=== PATIENT | male | born 1950 | race Asian ===

== ENCOUNTER 2018-01-01 10:48 | Emergency (ER) | payer MEDICARE, OTHER ==
[~2018-01-01] VITALS: Ht 172.7 cm; Wt 72.6 kg
[2018-01-01 10:49] VITALS: BP 129/81
[2018-01-01] MEDS ORDERED: Ketorolac 30mg Inj IM ONE (11:15)
[2018-01-01] MEDS ORDERED: Cyclobenzaprine 10mg Tab ORAL ONE (11:15)
--- NOTE | 2018-01-01 11:20 | Emergency Room Report ---
History of Present Illness General Chief Complaint: Lower Back Pain or Injury Source: Patient Present Illness HPI 67-year-old male was walking outside, and the dog came up to him running, startled and he fell back, hurt his left wrist in his low back, did not hit his head, denies neck pain or upper back pain, denies loss of consciousness, denies use of blood thinners, denies any bleeding. He reports pain is back and left wrist constant achy moderate intensity, he denies any weakness, numbness, tingling. Allergies: Coded Allergies: No Known Allergies (Unverified , 01/01/18) Patient History Past Medical History: see triage record Reviewed Nursing Documentation: PMH: Agreed; PSxH: Agreed Review of Systems All Other Systems: negative except mentioned in HPI Physical Exam Vital Signs Date Time Temp Pulse Resp B/P (MAP) Pulse Ox O2 Delivery O2 Flow Rate FiO2 01/01/18 10:40 98.0 82 16 132/86 98 Room Air 98.1 Sp02 EP Interpretation: reviewed, normal General Appearance: no apparent distress, alert, non-toxic Head: normocephalic Eyes: bilateral eye normal inspection, bilateral eye PERRL, bilateral eye EOMI ENT: normal ENT inspection, hearing grossly normal, normal pharynx, no angioedema, normal voice, moist mucus membranes Neck: normal inspection, full range of motion, supple, supple/symm/no masses Respiratory: chest non-tender, lungs clear, normal breath sounds, chest symmetrical, palpation of chest normal Cardiovascular #1: normal peripheral pulses, regular rate, rhythm, no edema, no gallop, no JVD, no murmur, no rub Cardiovascular #2: 2+ radial (R), 2+ radial (L), 2+ dorsalis pedis (R), 2+ dorsalis pedis (L) Gastrointestinal: normal inspection, non tender, soft, no mass, no guarding, no rebound Rectal: deferred Genitourinary: normal inspection, no CVA tenderness Musculoskeletal: back normal, gait/station normal, normal range of motion, non- tender, no calf tenderness, tender - miild diffuse L spine and L wrist tenderness but FROM and no deformity Neurologic: alert, responsive, 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, motor strength/tone normal, SLR negative - + on RLE, sensory intact, speech normal Psychiatric: judgement/insight normal, memory normal, mood/affect normal Skin: normal color, no rash, warm/dry, normal turgor Lymphatic: no adenopathy Medical Decision Making Diagnostic Impression: Primary Impression: Low back pain Additional Impression: Compression fracture ER Course Patient with mechanical fall, found to have L2 compression fracture, will discharge as he is very stable, instructed to follow-up with PMD in 2-3 days for reevaluation, will give analgesics, do not suspect any spinal cord injury at this time, patient not on blood thinners, pain is under control, will discharge and patient understands importance of f/u for spinal surgery referral by PMD. Other X-Ray Diagnostic Results Other X-Ray Diagnostic Results #1: X-Ray ordered: L wrist # of Views/Limited Vs Complete: Limited Indication: Pain EP Interpretation: Yes Interpretation: no dislocation, no soft tissue swelling, no fractures, nonspecific bowel gas Impression: No acute disease Electronically Signed by: Fanta Sanchez MD Other X-Ray Diagnostic Results #2: X-Ray ordered: L spine # of Views/Limited Vs Complete: Limited Indication: Pain EP Interpretation: Yes Interpretation: no dislocation, no soft tissue swelling, nonspecific bowel gas, no sbo, other Impression: Other Electronically Signed by: L2 compression fx, ~20% loss of height Last Vital Signs Date Time Temp Pulse Resp B/P (MAP) Pulse Ox O2 Delivery O2 Flow Rate FiO2 01/01/18 10:49 98.1 82 16 129/81 98 Room Air 98.1 Disposition: HOME, SELF-CARE Condition: Stable FANTA SANCHEZ M.D Jan 01, 2018 11:20
--- NOTE | 2018-01-01 13:56 | Diagnostic Imaging Report ---
Indication: Back pain Comparison: None Findings: 3 views of the lumbar spine were obtained. There is a mild compression fracture of the anterior aspect of the superior endplate of L2 with mild depression of the superior endplate and a fracture line extending vertically into the L1-2 disc. There is also slight buckling of the anterior cortex along the superior margin of the vertebra. The bones are osteopenic. There is a moderate narrowing of L4-5 disc. There is sclerosis of the lower lumbar facets and hypertrophy. Aorta is moderately calcified. There is no malalignment identified. IMPRESSION: Acute, mild anirudh-superior endplate fracture of the L2 vertebra. Osteoporosis Degenerative spondylosis. Atherosclerotic vascular disease
[2018-01-01] MEDS ORDERED: COLACE100 MG ORAL (13:58)
[2018-01-01] MEDS ORDERED: NORCO 5-325 TA1 EACH ORAL (13:58)
[2018-01-01] MEDS ORDERED: IBUPROFEN600 MG ORAL (13:58)
[2018-01-01 14:39] VITALS: BP 129/81
--- NOTE | 2018-01-01 14:51 | Diagnostic Imaging Report ---
Indication: Left wrist pain Findings: 3 views of the left wrist were obtained. Questionable age indeterminant fracture involving the distal radius on the oblique view. The fracture may be an intra-articular if real or acute. Alignment is anatomic. Soft tissues are unremarkable. Bones are osteopenic. IMPRESSION: Questionable distal radius fracture
[2018-01-01] MEDS ORDERED: UNOBMED (15:38)
== END 2018-01-01 14:39 | disposition home or self-care (01) ==
LOC: EDBD 10:48 → EMR 11:40
DX: S32.029A Unspecified fracture of second lumbar vertebra, initial encounter for closed fracture (principal); S69.92XA Unspecified injury of left wrist, hand and finger(s), initial encounter; W18.39XA Other fall on same level, initial encounter; Y93.89 Activity, other specified; Y92.018 Other place in single-family (private) house as the place of occurrence of the external cause
CPT/HCPCS: 72020; 73110; 96372; 99284; J1885

== ENCOUNTER 2018-01-01 15:23 | Emergency (ER) | payer MEDICARE, OTHER ==
[~2018-01-01] VITALS: Ht 175.3 cm; Wt 77.1 kg
[~2018-01-01 15:23] MED LIST: COLACE100 MG ORAL; IBUPROFEN600 MG ORAL; NORCO 5-325 TA1 EACH ORAL
[2018-01-01 15:26] VITALS: BP 129/84
[2018-01-01] MEDS ORDERED: UNOBMED (15:38)
--- NOTE | 2018-01-01 16:33 | Diagnostic Imaging Report ---
Indication: Injury of the left wrist. Abnormal x-ray. Technique: Continuous helical imaging of the left knee was performed in the transaxial plane. Coronal 2-D reformatted images were also generated. Study obtained in a Siem[employer] Sensation [address] total DLP: 365 mGycm CTD/vol: 0.15, 0.15, 11.52 mGy Comparison: None Findings: Plain x-ray suspicion of a acute fracture is confirmed as there is evidence of an acute nondisplaced intra-articular fracture involving the dorsal aspect of the distal radius. The fracture is seen for example images 44-53 series 10. The fracture intersects both the radioscaphoid joint as well as the distal radial ulnar joint. There is no malalignment. The fracture is nondisplaced. Soft tissue swelling noted. IMPRESSION: Acute nondisplaced intra-articular fracture of the dorsal radial with the main fracture line extending into the radioscaphoid joint. The CT scanner at [facility] is accredited by the [employer] and the scans are performed using dose optimization techniques as appropriate to a performed exam including Automatic Exposure control.
--- NOTE | 2018-01-01 16:38 | Emergency Room Report ---
History of Present Illness General Chief Complaint: General Complaint Source: Patient, Medical Record Present Illness HPI Refer to the addendum that was made on the patient's initial visit Radiology did contact us regarding possible fracture Therefore the patient presented back to the emergency room for further imaging including CT imaging. He does describe discomfort to the distal left wrist This visit specifically is focused on the wrist evaluation itself And further evaluation was not made Allergies: Coded Allergies: No Known Allergies (Unverified , 01/01/18) Patient History Past Medical History: see triage record Pertinent Family History: none Reviewed Nursing Documentation: PMH: Agreed; PSxH: Agreed Nursing Documentation-PMH Past Medical History: No History, Except For Hx Neurological Problems: No - chronic back problem Review of Systems Eye: Reports: no symptoms; Denies: eye pain, blurred vision ENT: Reports: no symptoms; Denies: ear pain, ear discharge Respiratory: Reports: no symptoms; Denies: cough, orthopnea Musculoskeletal: Reports: other - Pain to left wrist Skin: Reports: rash Neurological: Denies: headache, numbness Endocrine: Denies: excessive sweating Physical Exam Vital Signs Date Time Temp Pulse Resp B/P (MAP) Pulse Ox O2 Delivery O2 Flow Rate FiO2 01/01/18 15:25 98.5 88 16 129/84 98 Room Air 98.4 Sp02 EP Interpretation: reviewed, normal General Appearance: well appearing, no apparent distress Head: normocephalic, atraumatic Eyes: bilateral eye PERRL, bilateral eye EOMI ENT: hearing grossly normal, normal pharynx Neck: full range of motion Cardiovascular #1: regular rate, rhythm Gastrointestinal: non tender Musculoskeletal: other - Tender on palpation of the distal radial area on the left arm Neurologic: alert, oriented x3, responsive Skin: normal color Lymphatic: no adenopathy Procedures Splinting Progress Please refer to previous note, the splint on the left wrist is left in place Medical Decision Making Diagnostic Impression: Primary Impression: wrist fracture ER Course Patient did have CAT scan of the wrist obtained which does confirm distal radial fracture This is intra-articular and patient will require outpatient orthopedic follow-up I spoke to the family and the patient has follow-up on Thursday with his physician Last Vital Signs Date Time Temp Pulse Resp B/P (MAP) Pulse Ox O2 Delivery O2 Flow Rate FiO2 01/01/18 15:26 98.4 88 16 129/84 98 Room Air 98.4 Status: improved Disposition: HOME, SELF-CARE Condition: Improved Patient Instructions: Wrist Fracture, [id number], Wrist Splint, [id number] Additional Instructions: Patient is provided with the discharge instructions notified to follow up with primary doctor in the next 2-3 days otherwise return to the er with any worsening symptoms. Please note that this report is being documented using DRAGON technology. This can lead to erroneous entry secondary to incorrect interpretation by the dictating instrument. Obinna Gardner DO Jan 01, 2018 16:38
[2018-01-01 17:12] VITALS: BP 129/84
== END 2018-01-01 17:14 | disposition home or self-care (01) ==
LOC: EMR 16:48
DX: S52.502A Unspecified fracture of the lower end of left radius, initial encounter for closed fracture (principal); X58.XXXA Exposure to other specified factors, initial encounter; Y93.9 Activity, unspecified; Y92.9 Unspecified place or not applicable
CPT/HCPCS: 99284